=== PATIENT | female | born 1975 | race Caucasian/White ===

== ENCOUNTER 2018-11-17 07:32 | Day surgery (SDC) | payer OTHER ==
[~2018-11-17 07:32] MED LIST: Lactated Ringers 1,000 ML IV SCH; Lidocaine 1%/Sod Bicarbonate in NS 8.4% 1 ML Syringe IDERM PRN; Sodium Chloride 0.9% 10 ML Syringe FLUSH PRN
[2018-11-17] MEDS ORDERED: Bupivacaine 0.25% 10 ML SDV ONE (07:51)
--- NOTE | 2018-11-17 07:53 | PCM.PREANE ---
Preanesthetic Assessment - Anesthesia/Transfusion/Family Hx Anesthesia History: Prior Anesthesia Without Reaction Family History of Anesthesia Reaction: No Transfusion History: No Prior Transfusion(s) - Review of Systems General: No Symptoms Pulmonary: No Symptoms Cardiovascular: No Symptoms Gastrointestinal: No Symptoms Neurological: No Symptoms Other: Reports: None - Physical Assessment NPO Status Date: 11/16/18 NPO Status Time: 22:00 ASA Class: 1 Mental Status: Alert & Oriented x3 Airway Class: Mallampati = 1 Dentition: Reports: Normal Dentition, Dentures Thyro-Mental Finger Breadths: 3 Mouth Opening Finger Breadths: 3 ROM/Head Extension: Full Lungs: Clear to Auscultation, Normal Respiratory Effort Cardiovascular: Regular Rate, Regular Rhythm - Lab Values: Laboratory Last Values MRSA (PCR) Negative 11/16/18 11:33 - Allergies Allergies/Adverse Reactions: Allergies Allergy/AdvReac Type Severity Reaction Status Date / Time Sulfa (Sulfonamide Allergy Rash Verified 11/16/18 13:03 Antibiotics) - Acknowledgements Anesthesia Type Planned: General Anesthesia Pt an Appropriate Candidate for the Planned Anesthesia: Yes Alternatives and Risks of Anesthesia Discussed w Pt/Guardian: Yes Pt/Guardian Understands and Agrees with Anesthesia Plan: Yes PreAnesthesia Questionnaire HEENT History: Reports: Other (See Below) Cardiovascular History: Reports: None Respiratory History: Reports: None Gastrointestinal History: Reports: GERD (Nexium daily), Other (See Below) Other Gastrointestinal History: umbilical hernia Genitourinary History: Reports: Urinary Incontinence, UTI, Recurrent, Other ( See Below) Other Genitourinary History: Yeast infection from antibiotic, dysmenorrhea, menorrhagia, vaginits, labial enlargement and irritation 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 (Approximate): Other (See Below) (pt refused test) Musculoskeletal History: Reports: Other (See Below) Other Musculoskeletal History: current right lateral meniscus tear Neurological History: Reports: None Psychiatric History: Reports: Anxiety, Depression, Other (See Below) Other Psychiatric History: fatigue Endocrine/Metabolic History: Reports: Vitamin D Deficiency Hematologic History: Reports: None Immunologic History: Reports: None Oncologic (Cancer) History: Reports: None Dermatologic History: Reports: Other (See Below) Other Dermatologic History: acne, skin lesion - Past Surgical History Head Surgeries/Procedures: Reports: None HEENT Surgical History: Reports: LASIK, Oral Surgery, Tonsillectomy Cardiovascular Surgical History: Reports: None Respiratory Surgical History: Reports: None GI Surgical History: Reports: Hernia Repair/Other Female Surgical History: Reports: Breast Implant, Endometrial Ablation, Other (See Below) Other Female Surgeries/Procedures: labialplasty Endocrine Surgical History: Reports: None Neurological Surgical History: Reports: None Musculoskeletal Surgical History: Reports: None Oncologic Surgical History: Reports: None - SUBSTANCE USE Smoking Status *Q: Never Smoker Recreational Drug Use History: No - HOME MEDS Home Medications: Home Meds Esomeprazole Magnesium [Nexium] 20 mg PO DAILY 11/16/18 [History] FLUoxetine HCl [Prozac] 20 mg PO DAILY 11/16/18 [History] Oxybutynin Chloride [Ditropan Xl] 10 mg PO BID 11/16/18 [History] Acetaminophen/HYDROcodone [[employer] 325-5 MG] 1 - 2 tab PO Q6H PRN #20 tablet 11/17 [Rx] Aspirin 325 mg PO BID #84 tab 11/17/18 [Rx] - CURRENT (IN HOUSE) MEDS Current Meds: Current Medications Epinephrine HCl (Adrenalin) 3 mg .XX ONETIME GUNNAR Stop: 11/17/18 18:00 Lactated Ringer's (Ringers, Lactated) 1,000 mls @ 125 mls/hr IV ASDIRECTED GUNNAR Lidocaine/Sodium Bicarbonate (Buffered Lidocaine 1% In Ns 8.4%) 0.25 ml IDERM ONETIME PRN PRN Reason: Prior to IV Start Sodium Chloride (Saline Flush) 10 ml FLUSH ASDIRECTED PRN PRN Reason: Keep Vein Open
[2018-11-17] MEDS ORDERED: ceFAZolin 1 GM Vial ONE ×2 (08:03→08:04)
[2018-11-17] MEDS ORDERED: Midazolam 1 MG/ML 2 ML SDV ONE (08:05)
[2018-11-17] MEDS ORDERED: Propofol 200 MG/20 ML SDV ONE (08:06)
[2018-11-17] MEDS ORDERED: Lidocaine 1% 2 ML ONE ×2 (08:06→08:07)
[2018-11-17] MEDS ORDERED: fentaNYL 250 MCG/5 ML SDV ONE (08:06)
[2018-11-17] MEDS ORDERED: Ondansetron 4 MG/2 ML SDV ONE (08:07)
[2018-11-17] MEDS ORDERED: HYDROmorphone 0.5 MG/0.5 ML Syringe IVPUSH PRN (09:10)
[2018-11-17] MEDS ORDERED: fentaNYL 100 MCG/2 ML SDV IVPUSH PRN (09:10)
[2018-11-17] MEDS ORDERED: Ondansetron 4 MG/2 ML SDV IVPUSH PRN (09:10)
[2018-11-17] MEDS: EPINEPHrine 1 MG/ML 30 ML MDV SCH ×2 (09:15→10:36)
--- NOTE | 2018-11-17 09:45 | PCM.POSTAN ---
POST ANESTHESIA ASSESSMENT - MENTAL STATUS Mental Status: Alert, Oriented - VITAL SIGNS Vital Signs: Last Vital Signs Temp 36.7 C 11/17/18 07:40 Pulse 82 11/17/18 07:40 Resp 16 11/17/18 07:40 BP 124/80 11/17/18 07:40 Pulse Ox 100 11/17/18 07:40 - RESPIRATORY Respiratory Status: Respiratory Rate WNL, Airway Patent, O2 Saturation Stable - CARDIOVASCULAR CV Status: Pulse Rate WNL, Blood Pressure Stable - GASTROINTESTINAL GI Status: No Symptoms - PAIN Pain Score: 0 - POST OP HYDRATION Hydration Status: Adequate & Stable
[2018-11-17] MEDS ORDERED: Acetaminophen/HYDROcodone 325-5 MG Tab PO SCH ×2 (10:09→10:15)
--- NOTE | 2018-11-17 10:17 | PCM48HPAN ---
Post Anesthesia Note - EVALUATION WITHIN 48HRS OF ANESTHETIC Vital Signs in Normal Range: Yes Patient Participated in Evaluation: Yes Respiratory Function Stable: Yes Airway Patent: Yes Cardiovascular Function Stable: Yes Hydration Status Stable: Yes Pain Control Satisfactory: Yes Nausea and Vomiting Control Satisfactory: Yes Mental Status Recovered: Yes Vital Signs: Last Vital Signs Temp 97.6 F 11/17/18 10:10 Pulse 80 11/17/18 10:10 Resp 13 11/17/18 10:10 BP 106/63 11/17/18 10:10 Pulse Ox 95 11/17/18 10:10
[2018-11-17 10:22] VITALS: BP 112/74
--- NOTE | 2018-11-17 12:21 | PCM48HPAN ---
Post Anesthesia Note - EVALUATION WITHIN 48HRS OF ANESTHETIC Vital Signs in Normal Range: Yes Patient Participated in Evaluation: Yes Respiratory Function Stable: Yes Airway Patent: Yes Cardiovascular Function Stable: Yes Hydration Status Stable: Yes Pain Control Satisfactory: Yes Nausea and Vomiting Control Satisfactory: Yes Mental Status Recovered: Yes Vital Signs: Last Vital Signs Temp 36.6 C 11/17/18 10:21 Pulse 78 11/17/18 10:21 Resp 15 11/17/18 10:21 BP 112/74 11/17/18 10:21 Pulse Ox 97 11/17/18 10:21
--- NOTE | 2018-11-19 07:15 | PCM.OPNOTE ---
- General Post-Op/Procedure Note Date of Surgery/Procedure: 11/17/18 Operative Procedure(s): right knee video arthroscopy with partial lateral meniscectomy Pre Op Diagnosis: right knee lateral meniscus tear Post-Op Diagnosis: Same Anesthesia Technique: General LMA, Local Primary Surgeon: Kerwin Pitts Anesthesia Provider: Cathleen Daniels Mid Level Provider: Aida Lund in mLs: 5 Complications: None Condition: Good
--- NOTE | 2018-11-22 13:43 | OR ---
DATE OF OPERATION: 11/17/2018 SURGEON: Kerwin Pitts MD OPERATION PERFORMED: Right knee video arthroscopy with partial lateral meniscectomy. PREOPERATIVE DIAGNOSIS: Right knee lateral meniscus tear. POSTOPERATIVE DIAGNOSIS: Right knee lateral meniscus tear. ANESTHESIA: General LMA with local. ANESTHESIA PROVIDER: Cathleen Daniels CRNA. BOTTOM STOP ATTACHER: Aida Lund PA-C. ESTIMATED BLOOD LOSS: Less than 5 mL. COMPLICATIONS: None. CONDITION: Stable. DESCRIPTION OF PROCEDURE: The patient was identified in the preop holding area. Proper site was marked and identified by the surgeon. The patient was taken back to the operating theater, where after adequate anesthesia, the patient's left lower extremity was placed in a well leg batista. Right lower extremity had a nonsterile tourniquet applied and was then placed in a C-clamp batista. Foot of bed was then lowered. Right lower extremity was then sterilely prepped and draped in the usual sterile fashion. OR time-out was performed. The patient received 2 g IV Ancef. Right lower extremity was then exsanguinated. Tourniquet was insufflated to 250 mmHg. Standard anterior lateral portal incision was made. Scope trocar was introduced into the knee joint. Patellofemoral joint showed no signs of chondromalacia. There was no loose foreign bodies in the medial and lateral gutters. Attention was turned to the medial compartment. With the use of a spinal needle, anterior medial portal incision was made. There was no chondromalacia of the medial compartment and the medial meniscus was intact. The ACL was intact in the notch. On the lateral side, there was noted to be an undersurface tear of the posterior third of the meniscus with distal loose flap on the undersurface of the posterior horn of the lateral meniscus. At this time, partial lateral meniscectomy was performed with a loose flap on the undersurface but the rest of the meniscus was fully intact with no other signs of tear. The partial lateral meniscectomy took about 5% of the lateral meniscus only, and the rest of it was intact. Excess saline was drained from the knee. 3-0 nylon suture was used for closure of the skin. The patient had a sterile soft dressing applied and was sent to PACU in stable condition. MMODAL /[id number]
== END 2018-11-17 10:40 | disposition home or self-care (01) ==
LOC: JD.SDS 07:32
PROVIDERS: ATTEND Orthopaedic Surgery
DX: S83.281A Other tear of lateral meniscus, current injury, right knee, initial encounter (principal); K21.9 Gastro-esophageal reflux disease without esophagitis; F41.9 Anxiety disorder, unspecified; F32.9 Major depressive disorder, single episode, unspecified; Z87.891 Personal history of nicotine dependence; Z88.2 Allergy status to sulfonamides; Z79.899 Other long term (current) drug therapy
CPT/HCPCS: 29881; 87641; A9270; J0171; J0690; J2001; J2250; J2405; J2704; J3010; J3490; J7120

== ENCOUNTER 2022-03-11 06:08 | Day surgery (SDC) | payer OTHER ==
[~2022-03-11 06:08] MED LIST changes: -Sodium Chloride 0.9% 10 ML Syringe FLUSH PRN
[2022-03-11] MEDS ORDERED: Lidocaine 1% 4 ML ONE (07:11)
[2022-03-11] MEDS ORDERED: Propofol 200 MG/20 ML SDV ONE ×2 (07:11→08:21)
[2022-03-11] MEDS ORDERED: fentaNYL 100 MCG/2 ML SDV ONE (07:12)
[2022-03-11] MEDS ORDERED: Midazolam 1 MG/ML 2 ML SDV ONE (07:12)
[2022-03-11] MEDS ORDERED: Lactated Ringers 1,000 ML ONE (08:31)
[2022-03-11] MEDS ORDERED: Sodium Chloride 0.9% 10 ML Syringe FLUSH SCH (09:00)
[2022-03-11 09:38] VITALS: BP 110/70; PULSE 78
== END 2022-03-11 09:25 | disposition home or self-care (01) ==
LOC: JD.SDS 06:08
PROVIDERS: ATTEND Surgery
DX: Z12.11 Encounter for screening for malignant neoplasm of colon (principal); K21.00 Gastro-esophageal reflux disease with esophagitis, without bleeding; K31.7 Polyp of stomach and duodenum; F41.9 Anxiety disorder, unspecified; F32.A Depression, unspecified; E55.9 Vitamin D deficiency, unspecified; Z88.0 Allergy status to penicillin; Z79.899 Other long term (current) drug therapy; Z98.890 Other specified postprocedural states; Z87.891 Personal history of nicotine dependence
CPT/HCPCS: 43239; 45378; J2250; J2704; J3010; J7120; 00813